=== PATIENT | male | born 1985 | race Caucasian/White ===

== ENCOUNTER 2020-10-27 12:28 | Inpatient (IN) ==
[2020-10-27 13:14] LABS: Basophils # (auto) 0.04 K/uL (0-0.2); Basophils % (auto) 0.2 %; Eosinophils # (auto) 0.06 K/uL (0-0.5); Eosinophils % (auto) 0.3 %; Hematocrit (blood only) 52.1 % (42-52); Hemoglobin 18.5 g/dL (14.0-18.0); Immature Granulocytes # (auto) 0.07 K/uL (0.00-0.02); Immature Granulocytes % (auto) 0.4 %; Lymphocytes # (auto) 1.72 K/uL (1.2-3.4); Mean Corpuscular Hgb Conc 35.5 g/dL (32-36); Mean Corpuscular Volume 92.9 fL (80-100); Monocytes # (auto) 1.44 K/uL (0.11-0.59); Monocytes % (auto) 8.4 %; Neutrophils # (auto) 13.91 K/uL (1.4-6.5); Neutrophils % (auto) 80.7 %; Platelet Count 336 K/uL (130-400); RDW Coefficient of Variation 12.2 % (11.5-14.5); RDW Standard Deviation 41.7 fL (36.4-46.3); Red Blood Count 5.61 M/uL (4.7-6.1); White Blood Count 17.24 K/uL (4.8-10.8)
[2020-10-27 13:29] LABS: Albumin Level 3.6 gm/dl (3.4-5.0); BUN Creatinine Ratio 14.6 (10-20); Creatinine Clr Calc Pharmacy 183.6 ml/min; Est GFR (African American) 133.2; Est GFR (Non-African American) 114.9; Potassium 3.3 mmol/L (3.5-5.1)
[2020-10-27 13:32] LABS: Albumin Globulin Ratio 0.6 (0.9-2); Bilirubin,Total 1.1 mg/dl (0.2-1); Globulin 5.6 gm/dl (2.5-4.0); Total Protein 9.2 gm/dl (6.4-8.2)
[2020-10-27] MEDS ORDERED: SODIUM CHLORIDE 0.9% 1000ML 1,000 ML IV ONE (14:43)
[2020-10-27] MEDS ORDERED: VANCOMYCIN HCL 2,750 MG in SODIUM CHLORIDE 0.9% 500 ML IV ONE (14:43)
[2020-10-27] MEDS ORDERED: VANCOMYCIN CONSULT ACTIVE PRN (14:43)
[2020-10-27] MEDS ORDERED: PIPERACILLIN/TAZOBACTAM 4.5 GM/120 ML BAG IV ONE (14:43)
[2020-10-27] MEDS ORDERED: OPTIRAY 350 500ml IV ONE (15:05)
[2020-10-27 15:16] LABS: Appearance Urine Cloudy (Clear); Bacteria Urine Automated 1+ (Negative); Blood Urine Negative (Negative); Color Urine Orange; Epithelial Cell Urine Auto >30 /lpf (0-5); Glucose Urine UA Negative (Negative); Ketones Urine Trace (Negative); Leukocyte Esterase Urine Trace (Negative); Nitrite Urine Positive (Negative); Protein Urine 2+ (Negative); Specific Gravity Urine 1.038 (1.000-1.030); Urobilinogen Urine Positive (Negative); pH Urine 5.5 (4.5-7.5)
[2020-10-27 15:22] LABS: Bilirubin Urine 1+ (Negative)
--- NOTE | 2020-10-27 15:22 | CT Scan Report ---
CT pelvis w/IV con only HISTORY: 35 years-old Male ro fourniers R testicle swelling erythema febrile acute pain and swelling of the right scrotum COMPARISON: CT abdomen and pelvis 02/27/2013 TECHNIQUE: Multiple axial CT images of the pelvis were obtained following the intravenous ministratio n of 106 mL Optiray 320. A dose lowering technique was used consistent with the principals of ARTURO. FINDINGS: Aorta and IVC are unremarkable. Urinary bladder prostate are unremarkable. Colonic diverticulosis. No rmal appendix. No ascites or mesenteric inflammation. Enlarged iliac chain, pelvic sidewall and ingui nal lymph nodes are noted bilaterally measuring up to approximately 1.5 cm. There is a peripherally e nhancing collection within the right hemiscrotum distribution measuring 12.0 x 7.6 x 7.0 cm which con tains debris, air and fluid. There is adjacent subcutaneous edema with fluid extending into the right upper scrotum, image 309. No deep tissue air identified within the perineal tissues. No acute fractu re. IMPRESSION: 1. Thick-walled peripherally enhancing air and fluid-filled collection of the right hemiscrotum measu ring up to 12 cm in greatest dimension is suggestive of a scrotal abscess. No collection or soft tiss ue gas within the perineal tissues. Urology consultation recommended. 2. Pathologic iliac chain, pelvic sidewall and inguinal adenopathy, likely reactive. ACT 112: Negative or not required by law. The above report was generated using voice recognition software. It may contain grammatical, syntax o r spelling errors. Electronically signed by: Brennan Chester M.D. 10/27/2020 3:21 PM
[2020-10-27 15:47] LABS: RBC Urine Automated 0-4 /hpf (0-4)
[2020-10-27 15:48] LABS: Cast Urine Automated 0 /lpf (0-5); Mucus Urine Present (None Prsent)
[2020-10-27 15:51] LABS: INR 1.1 (0.9-1.1); Partial Thromboplastin Ratio 1.1; Partial Thromboplastin Time 28.5 Seconds (21.0-31.0); Prothrombin Time 11.2 Seconds (9.0-12.0)
--- NOTE | 2020-10-27 16:17 | Urology Consultation ---
Date of Consultation October 27, 2020 Assessment & Plan (1) Scrotal abscess: (2) Scrotal swellin year-old male patient, with history of GERD and kidney stones, presented with findings consistent with scrotal abscess. -Plan of care reviewed with Dr. Malone. -Patient afebrile. -Labs reviewed - wbc elevated at 17.24, creatinine stable. -Blood and urine cultures pending, await results. -Imaging reviewed - thick-walled peripherally enhancing air and fluid-filled collection of the right hemiscrotum measuring up to 12 cm in greatest dimension suggestive of a scrotal abscess. -Recommend admitting to medicine team. -Recommend NPO. -Plan for surgical intervention this evening. Findings reviewed with Dr. Malone. Given exam findings, will proceed to OR for right scrotal incision and drainage with possible debridement. Risks and benefits of procedure to be reviewed with patient by Dr. Malone. COVID-19 pending. Patient received IV Zosyn and currently receiving IV Vancomycin. Will continue to follow while inpatient. Supervising Physician Co-Signing Physician Notes Pt seen and examined . Pt has had the swelling starting as a marble sized area a week ago and progressing to a full scrotal abscess 12 cm with an elevated glucose . The left testis is palpable and the swelling appears confined to the right hemiscrotum . Do not believe this has progressed to fourniers but will take to the or to drain and debride if necessary and patient understands this could progress and he could need a reoperation . Will ask medicine to admit and address blood sugar and manage antibiotics. Answered patients questions and have contacted the OR History of Present Illness Reason for Consultation: Scrotal abscess Requesting Physician: Dr. Jose A Kidd History of Present Illness 35 year-old male patient, with past medical history significant for kidney stones and GERD, presented to the emergency room today with complaints of scrotal swelling. He was seen earlier today at [facility] for same symptoms and was directed to come to ER due to concern for sepsis. Per patient, he was febrile at [facility] but is unsure how high his temperature was. States roughly one week ago, he started to develop right-sided scrotal swelling which progresse d significantly over the past 3 days. Denies injury to the area. States his scrotum then became warm, red, and tender. States in July, he had similar episode to the left scrotum, but the area opened up and drained without intervention and subsequently resolved with time. Upon assessment, he was afebrile and tachycardic. His white count was elevated. Due to pelvic CT findings, he was asked to be evaluated by urology service. Urology consulted due to significant scrotal swelling. Patient has not followed with urologist in the past. Chart review: Afebrile Blood pressure 195/100 HR 119 Wbc 17.24 Hgb 18.5 Creatinine 0.80 Urinalysis with trace leukocytes, 10-30 wbc, 0-4 rbc +1 bacteria, positive nitrates. Urine culture pending. Blood cultures x2 pending. Imaging - CT pelvis with contrast - IMPRESSION: 1. Thick-walled peripherally enhancing air and fluid-filled collection of the right hemiscrotum measuring up to 12 cm in greatest dimension is suggestive of a scrotal abscess. No collection or soft tissue gas within the perineal tissues. Urology consultation recommended. 2. Pathologic iliac chain, pelvic sidewall and inguinal adenopathy, likely reactive. Patient seen and examined at bedside. He is alert, awake, non-toxic in appearance. Does appear anxious. States he continues to have discomfort to scrotal area. Reports over the past 3 days, symptoms have progressively worsen ed. Denies significant difficulty with urination. Denies dysuria or hematuria. Denies urinary frequency/urgency. Feels he empties his bladder well. Denies fevers or chills. Denies nausea or vomiting. He states he was applying rubbing alcohol to scrotum at home without improvement in symptoms. States he does not feel ill at this time. He has not ate food since yesterday around 9:00 and last drank liquid this morning. Overall, his symptoms have been worsening. Denies additional urologic concerns today. Allergies Allergy/AdvReac Type Severity Reaction Status Date / Time No Known Allergies Allergy Unverified 10/27/20 14:23 Home Medications Medication Instructions Recorded Confirmed Type omeprazole magnesium [Prilosec OTC] 20 mg PO DAILY 10/27/20 10/27/20 History Patient History Medical History GERD (gastroesophageal reflux disease) No pertinent family history Surgical History No pertinent past surgical history Family History Grandfather (Maternal) Cancer Social History Smoking Status: Current every day smoker Preferred Language: Polish Feels Safe at Home: Yes Review of Systems Constitutional: as per Subjective / HPI; no chills Eyes: no problem reported Ear, Nose, Mouth, Throat: no dizziness Respiratory: no cough and no dyspnea Cardiovascular: no chest pain and no edema Gastrointestinal: as per Subjective / HPI Genitourinary: + as per Subjective / HPI Musculoskeletal: as per Subjective / HPI Neurologic: no dizziness Endocrine: no fatigue Hematologic / Lymphatic: no easy bleeding and no easy bruising Physical Exam Constitutional: well developed, well nourished and + obese; no acute distress and not ill appearing ENMT: Ears: no external ear abnormality Nose: no external nose abnormality Neck: normal visual inspection and trachea midline Respiratory: normal respiratory effort and able to speak in complete se ntences; no respiratory distress and no audible wheezes Cardiovascular: Extremities: no calf tenderness and no edema Gastrointestinal (Abdomen): Inspection/Auscultation: abdomen normal to inspection; abdomen not distended Percussion/Palpation: abdomen soft; abdomen nontender and no guarding Musculoskeletal: Moves all extremities without difficulty. Skin: See assessment Neurologic: moves all extremities and awake Psychiatric: Orientation: alert, oriented x 3 and cooperative Affect: + anxious affect Genitourinary: Generalized swelling to scrotal area, right greater than left. Area is firm and tender to touch, tense skin. Erythema noted to scrotum with scaling of the skin. No significant warmth. No open areas or drainage to scrotum. Results & Data ([facility]) Vital Signs (Past 12 Hours) Vital Signs Temp Pulse Resp BP Pulse Ox 10/27/20 12:31 37.2 C 119 H 16 195/100 H 98 PG Care Time/CCT Total # of Minutes Spent Total Time Spent with Patient: Total time spent is greater than 50% in coordination of care (as documented) at patient's floor/unit and/or counseling patient: Coding Level of Care Code 22220 Inpt Consult Level 4 Diagnoses Scrotal abscess N49.2 Scrotal swelling N50.89
--- NOTE | 2020-10-27 16:22 | Emergency Department Note ---
History of Present Illness General Chief complaint: Infection Stated complaint: FROM GROIN ABSCESS SEPSIS Time Seen by Provider: 10/27/20 14:24 History of Present Illness Provider Complaint: + testicle pain and + testicle swelling Onset (ago): week(s) 1 Duration: + progressively worsening Location: + right testicle Severity: moderate Maximum Pain Intensity: 5 Current Pain Intensity: 5 Quality: + aching and + dull Relieved By: + none Exacerbated By: + other (sitting) Context: no trauma, no new sexual partner, no lifting and no known STD exposure Associated symptoms: + fever/chills and + rash; no chest pain, no cough, no se izure and no shortness of breath Other Symptoms: no discharge, no swelling, no mass, no urinary retention, no blood in urine, no dysuria and no incontinence Patient sent in by [employer] for concern for sepsis. Home Medications Medication Instructions Recorded Confirmed Type omeprazole magnesium [Prilosec OTC] 20 mg PO DAILY 10/27/20 10/27/20 History Allergies Allergy/AdvReac Type Severity Reaction Status Date / Time No Known Allergies Allergy Unverified 10/27/20 14:23 Past Med/Surg History Medical History GERD (gastroesophageal reflux disease) No pertinent family history Surgical History No pertinent past surgical history Family History Grandfather (Maternal) Cancer Social History Smoking Status: Current every day smoker Cigarettes Per Day: 1 pack; Hx Alcohol Use: Yes Alcohol type: beer and hard liquor Hx Substance Use: No Preferred Language: Colombian Beliefs That Will Affect Care: None Current Living Situation: Spouse Feels Safe at Home: Yes Safety Concerns: Feels Safe At This Time Assistive Devices: CPAP and Glasses Review of Systems A total of 10 systems reviewed and were otherwise negative Physical Exam Vital Signs: Vital Signs - 24 hr 10/27/20 12:31 10/27/20 16:29 10/27/20 17:29 Temperature 37.2 C 37.6 C H Temperature Source Oral Oral Pulse Rate 119 H Pulse Rate [Apical ] Pulse Rate [Right Finger] 85 111 H Pulse Rhythm Regular Pulse Rhythm [Apic al] Pulse Strength Normal Respiratory Rate 16 16 16 Respiratory Effort / Characteristics Non-Labored Non-Labored Sponta neous Non-Labored Sponta neous Respiratory Depth Normal Normal Normal Respiratory Patter n Regular Regular Blood Pressure 195/100 H Blood Pressure [Le ft Arm] Blood Pressure [Ri ght Arm] 152/103 H 180/120 H Blood Pressure Ailyn n 131 Blood Pressure Ailyn n [Left Arm] Blood Pressure Ailyn n [Right Arm] 119 140 Blood Pressure Pos ition Sitting Blood Pressure Pos ition [Left Arm] Blood Pressure Pos ition [Right Arm] Semi-fowlers Pulse Oximetry 98 100 96 Oxygen Delivery Me thod Room Air Room Air Room Air Oxygen Flow Rate Sepsis Recent Feve r Within 48 Hours No Sepsis New/Unexpla ined Change in Men paulette Status N/A Sepsis Action Take n by Nursing No Action Required 10/27/20 19:10 10/27/20 19:20 Temperature 37.0 C Temperature Source Temporal Artery Sc an Pulse Rate Pulse Rate [Apical ] 82 93 H Pulse Rate [Right Finger] Pulse Rhythm Pulse Rhythm [Apic al] Regular Regular Pulse Strength Respiratory Rate 23 20 Respiratory Effort / Characteristics Non-Labored Sponta neous Non-Labored Sponta neous Respiratory Depth Normal Normal Respiratory Patter n Regular Regular Blood Pressure Blood Pressure [Le ft Arm] 112/60 126/93 Blood Pressure [Ri ght Arm] Blood Pressure Ailyn n Blood Pressure Ailyn n [Left Arm] 77 104 Blood Pressure Ailyn n [Right Arm] Blood Pressure Pos ition Blood Pressure Pos ition [Left Arm] Lying Lying Blood Pressure Pos ition [Right Arm] Pulse Oximetry 92 95 Oxygen Delivery Me thod Oxymask Oxymask Oxygen Flow Rate 4 4 Sepsis Recent Feve r Within 48 Hours Sepsis New/Unexpla ined Change in Men paulette Status Sepsis Action Take n by Nursing Physical Exam: Physical Exam GENERAL: He is oriented to person, place, and time. He appears well-developed and well-nourished. He does not appear distressed. HENT: Exam performed. - Head: Normocephalic and atraumatic. - Right Ear: External ear normal. No mastoid tenderness. - Left Ear: External ear normal. No mastoid tenderness. - Mouth/Throat: The oropharynx is clear and moist. No trismus in the jaw. No dental abscesses or uvula swelling. No oropharyngeal exudate or tonsillar abscesses. EYES: Conjunctivae and EOM are normal. Pupils are equal, round, and reactive to light. Right eye exhibits no discharge. Left eye exhibits no discharge. No scleral icterus. NECK: Normal range of motion. Neck supple. No JVD present. No spinous process tenderness present. No carotid bruit present. No rigidity. No tracheal deviation and normal range of motion present. No Brudzinski's sign and no Kernig's sign noted. CV: Normal rate, regular rhythm, normal heart sounds and intact distal pulses. There is no peripheral edema. Palpable radial pulses bue. PULM/CHEST: Effort normal and breath sounds normal. No respiratory distress. No stridor. He has no wheezes. He has no rales. - Chest Wall: He exhibits no tenderness. ABD: The abdomen is soft. Bowel sounds are normal. He has no distension. No mass is present. There is no tenderness. There is no rebound, no guarding, no Horn's sign and no tenderness at McBurney's point. Rovsig negative. : Right scrotal swelling and erythema with scaling of the skin. Right scrotum is tense MUSC/SKEL: Normal range of motion. There is no peripheral edema, tenderness or deformity. LYMPH: No cervical adenopathy. NEURO: He is alert and oriented to person, place, and time. He has normal strength. No cranial nerve deficit or sensory deficit. Coordination and gait normal. GCS eye subscore is 4. GCS verbal subscore is 5. GCS motor subscore is 6. Cerebellar tests wnl. SKIN: Skin is warm and dry. He is not diaphoretic. PSYCH: He has a normal mood and affect. Behavior is normal. Judgment and thought content normal. Course Course 1424: The patient was evaluated in room A3. A complete history and physical exam was performed Cardiac monitoring: An order was placed for continuous cardiac monitoring. The monitor shows a rate of 120 with sinus tachycardia rhythm Patient was seen during a time of high acuity and high volume during the COVID- 19 pandemic. Nursing triage protocols were initiated. Fluid bolus initiated and broad-spectrum antibiotics Vanco and Zosyn started for the patient. 1534: Labs show a leukocytosis of 17. CT shows scrotal abscess with no free air or evidence of Joselyn's gangrene. Spoke with urology PA America who states she will discuss the case with Dr. Malone. 1604: Urology at bedside. They are asking that the patient be made n.p.o. and a Covid swab be conducted for possible OR debridement. 1626: Urology asks for the patient to be admitted to the medicine service. Administered Medications Discontinued Medications Bacitracin (Bacitracin Oint 15 Gm Tube) Confirm Administered Dose 45 appln .ROUTE .STK-MED ONE Stop: 10/27/20 18:58 Last Admin: 10/27/20 18:58 Dose: 45 appln Documented by: [id number] Bupivacaine HCl (Bupivacaine 0.5 % 5 Mg/1 Ml Mpf 30ml Vial) Confirm Administered Dose 30 ml .ROUTE .STK-MED ONE Stop: 10/27/20 17:36 Last Admin: 10/27/20 18:50 Dose: 24 ml Documented by: [id number] Gentamicin Sulfate (Gentamicin Sulfate 40 Mg/Ml 2 Ml Vial) Confirm Administered Dose 80 mg .ROUTE .STK-MED ONE Stop: 10/27/20 18:04 Last Admin: 10/27/20 18:44 Dose: 80 mg Documented by: [id number] Sodium Chloride (Nss 1000ml) 1,000 mls @ 999 mls/hr IV .Q1H1M ONE Stop: 10/27/20 15:43 Last Infusion: 10/27/20 16:35 Dose: 0 mls/hr Documented by: [id number] Admin: 10/27/20 15:25 Dose: 999 mls/hr Documented by: [id number] Piperacillin Sod/Tazobactam Sod (Zosyn) 4.5 gm in 120 mls @ 240 mls/hr IV NOW ONE Stop: 10/27/20 15:12 Last Infusion: 10/27/20 16:05 Dose: 0 mls/hr Documented by: [id number] Admin: 10/27/20 15:25 Dose: 240 mls/hr Documented by: [id number] Vancomycin HCl 2,750 mg/ (Sodium Chloride) 555 mls @ 200 mls/hr IV NOW ONE Stop: 10/27/20 17:29 Last Infusion: 10/27/20 20:37 Dose: 0 mls/hr Documented by: [id number] Admin: 10/27/20 16:12 Dose: 200 mls/hr Documented by: [id number] Ioversol (Optiray 350 500ml) 106 ml IV ONCE ONE Stop: 10/27/20 15:06 Last Admin: 10/27/20 15:06 Dose: 106 ml Documented by: [id number] Meperidine HCl (Meperidine Hcl 25 Mg/Ml Carp/Vial) Confirm Administered Dose 25 mg .ROUTE .STK-MED ONE Stop: 10/27/20 19:27 Last Admin: 10/27/20 20:36 Dose: Not Given Documented by: [id number] Meperidine HCl (Meperidine Hcl 25 Mg/Ml Carp/Vial) 25 mg IV NOW STA Stop: 10/27/20 19:27 Last Admin: 10/27/20 20:36 Dose: Not Given Documented by: [id number] Morphine Sulfate (Morphine Sulfate 4 Mg/Ml 1 Ml Carp\Vial) 3 mg IV Q3H CHERYL Stop: 11/10/20 20:15 Last Admin: 10/27/20 20:42 Dose: Not Given Documented by: Medical Decision Making Laboratory Data Result diagrams: 10/27/20 13:00 10/27/20 13:00 Lab Results 10/27/20 10/27/20 10/27/20 Range/Units 13:00 13:00 13:00 WBC 17.24 H (4.8-10.8) K/uL RBC 5.61 (4.7-6.1) M/uL Hgb 18.5 H (14.0-18.0) g/dL Hct 52.1 H (42-52) % MCV 92.9 (80-100) fL MCH 33.0 (25-34) pg MCHC 35.5 (32-36) g/dL RDW Std Deviation 41.7 (36.4-46.3) fL RDW Coeff of Jg 12.2 (11.5-14.5) % Plt Count 336 (130-400) K/uL MPV 10.0 (7.4-10.4) fL Immature Gran % (Auto) 0.4 % Neut % (Auto) 80.7 % Lymph % (Auto) 10.0 % Bartholomew % (Auto) 8.4 % Eos % (Auto) 0.3 % Baso % (Auto) 0.2 % Neut # (Auto) 13.91 H (1.4-6.5) K/uL Lymph # (Auto) 1.72 (1.2-3.4) K/uL Bartholomew # (Auto) 1.44 H (0.11-0.59) K/uL Eos # (Auto) 0.06 (0-0.5) K/uL Baso # (Auto) 0.04 (0-0.2) K/uL Immature Gran # (Auto) 0.07 H (0.00-0.02) K/uL PT (9.0-12.0) Seconds INR (0.9-1.1) APTT (21.0-31.0) Seconds PTT Ratio Sodium 136 (136-145) mmol/L Potassium 3.3 L (3.5-5.1) mmol/L Chloride 103 (98-107) mmol/L Carbon Dioxide 26 (21-32) mmol/L Anion Gap 8.0 (3-11) BUN 12 (7-18) mg/dl Creatinine 0.80 (0.6-1.4) mg/dl Est Cr Clr Drug Dosing 183.6 ml/min Est GFR ( Amer) 133.2 Est GFR (Non-Af Amer) 114.9 BUN/Creatinine Ratio 14.6 (10-20) Glucose 202 H (70-99) mg/dl POC Glucose (70-99) mg/dl Osmolality 302 H (280-300) mOsm/kg Lactate (0.4-2.0) mmol/L Calcium 10.0 (8.5-10.1) mg/dl Total Bilirubin 1.1 H (0.2-1) mg/dl AST 23 (15-37) U/L ALT 31 (12-78) U/L Alkaline Phosphatase 149 H (45-117) U/L Total Protein 9.2 H (6.4-8.2) gm/dl Albumin 3.6 (3.4-5.0) gm/dl Globulin 5.6 H (2.5-4.0) gm/dl Albumin/Globulin Ratio 0.6 L (0.9-2) Urine Color Urine Appearance (Clear) Urine pH (4.5-7.5) Ur Specific [place] (1.000-1.030) Urine Protein (Negative) Urine Glucose (UA) (Negative) Urine Ketones (Negative) Urine Blood (Negative) Urine Nitrite (Negative) Urine Bilirubin (Negative) Urine Urobilinogen (Negative) Ur Leukocyte Esterase (Negative) Urine WBC (Auto) (0-5) /hpf Urine RBC (Auto) (0-4) /hpf U Hyaline Cast (Auto) (0-5) /lpf U Epithel Cells (Auto) (0-5) /lpf Urine Bacteria (Auto) (Negative) Urine Mucus (None Prsent) COVID-19 Eval Order SARS-CoV-2 (PCR) (Negative) Influenza Type A (PCR) (Neg) Influenza Type B (PCR) (Neg) RSV (RT-PCR) (Neg) 10/27/20 10/27/20 10/27/20 Range/Units 13:00 15:10 15:33 WBC (4.8-10.8) K/uL RBC (4.7-6.1) M/uL Hgb (14.0-18.0) g/dL Hct (42-52) % MCV (80-100) fL MCH (25-34) pg MCHC (32-36) g/dL RDW Std Deviation (36.4-46.3) fL RDW Coeff of Jg (11.5-14.5) % Plt Count (130-400) K/uL MPV (7.4-10.4) fL Immature Gran % (Auto) % Neut % (Auto) % Lymph % (Auto) % Bartholomew % (Auto) % Eos % (Auto) % Baso % (Auto) % Neut # (Auto) (1.4-6.5) K/uL Lymph # (Auto) (1.2-3.4) K/uL Bartholomew # (Auto) (0.11-0.59) K/uL Eos # (Auto) (0-0.5) K/uL Baso # (Auto) (0-0.2) K/uL Immature Gran # (Auto) (0.00-0.02) K/uL PT 11.2 (9.0-12.0) Seconds INR 1.1 (0.9-1.1) APTT 28.5 (21.0-31.0) Seconds PTT Ratio 1.1 Sodium (136-145) mmol/L Potassium (3.5-5.1) mmol/L Chloride (98-107) mmol/L Carbon Dioxide (21-32) mmol/L Anion Gap (3-11) BUN (7-18) mg/dl Creatinine (0.6-1.4) mg/dl Est Cr Clr Drug Dosing ml/min Est GFR ( Amer) Est GFR (Non-Af Amer) BUN/Creatinine Ratio (10-20) Glucose (70-99) mg/dl POC Glucose (70-99) mg/dl Osmolality (280-300) mOsm/kg Lactate 1.4 (0.4-2.0) mmol/L Calcium (8.5-10.1) mg/dl Total Bilirubin (0.2-1) mg/dl AST (15-37) U/L ALT (12-78) U/L Alkaline Phosphatase (45-117) U/L Total Protein (6.4-8.2) gm/dl Albumin (3.4-5.0) gm/dl Globulin (2.5-4.0) gm/dl Albumin/Globulin Ratio (0.9-2) Urine Color [place] Urine Appearance Cloudy A (Clear) Urine pH 5.5 (4.5-7.5) Ur Specific [place] 1.038 H (1.000-1.030) Urine Protein 2+ H (Negative) Urine Glucose (UA) Negative (Negative) Urine Ketones Trace H (Negative) Urine Blood Negative (Negative) Urine Nitrite Positive A (Negative) Urine Bilirubin 1+ H (Negative) Urine Urobilinogen Positive H (Negative) Ur Leukocyte Esterase Trace H (Negative) Urine WBC (Auto) 10-30 H (0-5) /hpf Urine RBC (Auto) 0-4 (0-4) /hpf U Hyaline Cast (Auto) 0 (0-5) /lpf U Epithel Cells (Auto) >30 H (0-5) /lpf Urine Bacteria (Auto) 1+ H (Negative) Urine Mucus Present A (None Prsent) COVID-19 Eval Order SARS-CoV-2 (PCR) (Negative) Influenza Type A (PCR) (Neg) Influenza Type B (PCR) (Neg) RSV (RT-PCR) (Neg) 10/27/20 10/27/20 10/27/20 Range/Units 16:15 16:15 19:16 WBC (4.8-10.8) K/uL RBC (4.7-6.1) M/uL Hgb (14.0-18.0) g/dL Hct (42-52) % MCV (80-100) fL MCH (25-34) pg MCHC (32-36) g/dL RDW Std Deviation (36.4-46.3) fL RDW Coeff of Jg (11.5-14.5) % Plt Count (130-400) K/uL MPV (7.4-10.4) fL Immature Gran % (Auto) % Neut % (Auto) % Lymph % (Auto) % Bartholomew % (Auto) % Eos % (Auto) % Baso % (Auto) % Neut # (Auto) (1.4-6.5) K/uL Lymph # (Auto) (1.2-3.4) K/uL Bartholomew # (Auto) (0.11-0.59) K/uL Eos # (Auto) (0-0.5) K/uL Baso # (Auto) (0-0.2) K/uL Immature Gran # (Auto) (0.00-0.02) K/uL PT (9.0-12.0) Seconds INR (0.9-1.1) APTT (21.0-31.0) Seconds PTT Ratio Sodium (136-145) mmol/L Potassium (3.5-5.1) mmol/L Chloride (98-107) mmol/L Carbon Dioxide (21-32) mmol/L Anion Gap (3-11) BUN (7-18) mg/dl Creatinine (0.6-1.4) mg/dl Est Cr Clr Drug Dosing ml/min Est GFR ( Amer) Est GFR (Non-Af Amer) BUN/Creatinine Ratio (10-20) Glucose (70-99) mg/dl POC Glucose 139 H (70-99) mg/dl Osmolality (280-300) mOsm/kg Lactate (0.4-2.0) mmol/L Calcium (8.5-10.1) mg/dl Total Bilirubin (0.2-1) mg/dl AST (15-37) U/L ALT (12-78) U/L Alkaline Phosphatase (45-117) U/L Total Protein (6.4-8.2) gm/dl Albumin (3.4-5.0) gm/dl Globulin (2.5-4.0) gm/dl Albumin/Globulin Ratio (0.9-2) Urine Color Urine Appearance (Clear) Urine pH (4.5-7.5) Ur Specific [place] (1.000-1.030) Urine Protein (Negative) Urine Glucose (UA) (Negative) Urine Ketones (Negative) Urine Blood (Negative) Urine Nitrite (Negative) Urine Bilirubin (Negative) Urine Urobilinogen (Negative) Ur Leukocyte Esterase (Negative) Urine WBC (Auto) (0-5) /hpf Urine RBC (Auto) (0-4) /hpf U Hyaline Cast (Auto) (0-5) /lpf U Epithel Cells (Auto) (0-5) /lpf Urine Bacteria (Auto) (Negative) Urine Mucus (None Prsent) COVID-19 Eval Order Cov[facility]Rsv at [facility] SARS-CoV-2 (PCR) NEGATIVE (Negative) Influenza Type A (PCR) Negative (Neg) Influenza Type B (PCR) Negative (Neg) RSV (RT-PCR) Negative (Neg) Imaging Data Radiologist's Impression: Pelvis CT 10/27/20 14:42 CT pelvis w/IV con only HISTORY: 35 years-old Male ro fourn[place] R testicle swelling erythema febrile acute pain and swelling of the right scrotum COMPARISON: CT abdomen and pelvis 02/27/2013 TECHNIQUE: Multiple axial CT images of the pelvis were obtained following the intravenous ministration of 106 mL Optiray 320. A dose lowering technique was used consistent with the principals of ALARA. FINDINGS: Aorta and IVC are unremarkable. Urinary bladder prostate are unremarkable. Colonic diverticulosis. Normal appendix. No ascites or mesenteric inflammation. Enlarged iliac chain, pelvic sidewall and inguinal lymph nodes are noted bilaterally measuring up to approximately 1.5 cm. There is a peripherally enhancing collection within the right hemiscrotum distribution measuring 12.0 x 7.6 x 7.0 cm which contains debris, air and fluid. There is adjacent subcutaneous edema with fluid extending into the right upper scrotum, image 309. No deep tissue air identified within the perineal tissues. No acute fracture. IMPRESSION: 1. Thick-walled peripherally enhancing air and fluid-filled collection of the right hemiscrotum measuring up to 12 cm in greatest dimension is suggestive of a scrotal abscess. No collection or soft tissue gas within the perineal tissues. Urology consultation recommended. 2. Pathologic iliac chain, pelvic sidewall and inguinal adenopathy, likely reactive. ACT 112: Negative or not required by law. The above report was generated using voice recognition software. It may contain grammatical, syntax or spelling errors. Electronically signed by: Brennan Chester M.D. 10/27/2020 3:21 PM [facility] Narrative 1424: The patient was evaluated in room A3. A complete history and physical exam was performed Cardiac monitoring: An order was placed for continuous cardiac monitoring. The monitor shows a rate of 120 with sinus tachycardia rhythm Patient was seen during a time of high acuity and high volume during the COVID- 19 pandemic. Nursing triage protocols were initiated. Fluid bolus initiated and broad-spectrum antibiotics Vanco and Zosyn started for the patient. 1534: Labs show a leukocytosis of 17. CT shows scrotal abscess with no free air or evidence of Joselyn's gangrene. Spoke with urology ELENA Cross who states she will discuss the case with Dr. Malone. 1604: Urology at bedside. They are asking that the patient be made n.p.o. and a Covid swab be conducted for possible OR debridement. 1626: Urology asks for the patient to be admitted to the medicine service. Impression & Plan Scrotal abscess Discharge Plan Visit Data Chief Complaint: Infection Stated Complaint: FROM GROIN ABSCESS SEPSIS ED Provider: Jose A Kidd Discharge Problem: Scrotal abscess Patient Disposition: Admitted As Inpatient Discharge Instructions Interventions: ED Discharge Assessment Last Done: 10/27/20 17:24
[2020-10-27 17:14] LABS: Influenza A virus by PCR Negative (Neg); Influenza B virus by PCR Negative (Neg); RSV by PCR Negative (Neg); SARS CoV2 RNA(COVID-19) InHosp NEGATIVE (Negative)
[2020-10-27] MEDS ORDERED: fentaNYL citrate 100 MCG/2 ML VIAL ONE ×2 (17:30→18:20)
[2020-10-27] MEDS ORDERED: MIDAZOLAM HCL 1 MG/ML 2ML VIAL ONE (17:30)
--- NOTE | 2020-10-27 17:34 | Anesthesiology Consultation ---
Date of Service October 27, 2020 Assessment & Plan Chart Review Chart Review: Acceptable Risk for Surgery Consults Requested none History Surgery Operation Date: 10/27/20 10:30 Proposed Procedures p Right Incision and Drainage fo Scrotal Abscess - Rambo Malone MD Height/Weight Height: 6 ft Weight: 137.8 kg Allergies Allergy/AdvReac Type Severity Reaction Status Date / Time No Known Allergies Allergy Unverified 10/27/20 14:23 Medications Home Medications Medication Instructions Recorded Confirmed Last Taken omeprazole magnesium [Prilosec OTC] 20 mg PO DAILY 10/27/20 10/27/20 Unknown NPO Date Last Intake of Fluids: 10/26/20 Time Last Intake of Fluids: 21:00 Date Last Intake of Solids: 10/26/20 Time Last Intake of Solids: 21:00 Past Medical History Medical History GERD (gastroesophageal reflux disease) No pertinent family history Past Family History Family History Grandfather (Maternal) Cancer Past Surgical History Surgical History No pertinent past surgical history Social History Smoking Status: Current every day smoker Physical Exam Vital Signs Last Vital Signs Temp 37.6 C H 10/27/20 17:29 Pulse 111 H 10/27/20 17:29 Resp 16 10/27/20 17:29 BP 180/120 H 10/27/20 17:29 Pulse Ox 96 10/27/20 17:29 Testing Laboratory Results 10/27/20 13:00 10/27/20 13:00 PT 11.2 Seconds (9.0-12.0) 10/27/20 13:00 INR 1.1 (0.9-1.1) 10/27/20 13:00 APTT 28.5 Seconds (21.0-31.0) 10/27/20 13:00 Urine Color [place] 10/27/20 15:10 Urine Appearance Cloudy (Clear) A 10/27/20 15:10 Urine pH 5.5 (4.5-7.5) 10/27/20 15:10 Ur Specific [place] 1.038 (1.000-1.030) H 10/27/20 15:10 Urine Protein 2+ (Negative) H 10/27/20 15:10 Urine Glucose (UA) Negative (Negative) 10/27/20 15:10 Urine Ketones Trace (Negative) H 10/27/20 15:10 Urine Nitrite Positive (Negative) A 10/27/20 15:10 Ur Leukocyte Esterase Trace (Negative) H 10/27/20 15:10 Urine WBC (Auto) 10-30 /hpf (0-5) H 10/27/20 15:10 Urine RBC (Auto) 0-4 /hpf (0-4) 10/27/20 15:10 U Hyaline Cast (Auto) 0 /lpf (0-5) 10/27/20 15:10 U Epithel Cells (Auto) >30 /lpf (0-5) H 10/27/20 15:10 Urine Bacteria (Auto) 1+ (Negative) H 10/27/20 15:10
[2020-10-27] MEDS ORDERED: BUPIVACAINE 0.5 % 5 MG/1 ML MPF 30ML VIAL ONE (17:35)
[2020-10-27] MEDS ORDERED: LIDOCAINE HCL 2% 2 ML VIAL/AMP(20MG/ML) INFIL ONE (17:43)
[2020-10-27] MEDS ORDERED: ePHEDrine sulfate 50 MG/ML SYR ONE (17:43)
[2020-10-27] MEDS ORDERED: PROPOFOL IV EMULSION 10 MG/ML 20 ML VIAL IV ONE (17:43)
[2020-10-27] MEDS ORDERED: ONDANSETRON INJ 2 MG/ML 2 ML VIAL ONE (17:43)
[2020-10-27] MEDS ORDERED: DEXAMETHASONE SOD INJ 4 MG/ML VIAL ONE (17:43)
[2020-10-27] MEDS ORDERED: PHENYLEPHRINE 100MCG/ML 5ML SYR ONE (17:43)
[2020-10-27] MEDS ORDERED: GENTAMICIN SULFATE 40 MG/ML 2 ML VIAL ONE (18:03)
[2020-10-27] MEDS ORDERED: PROMETHAZINE HCL 12.5 MG in SODIUM CHLORIDE 0.9% 50 ML IV PRN (18:14)
[2020-10-27] MEDS ORDERED: ATROPINE SULFATE 0.1 MG/ML 10ML SYR IV PRN (18:14)
[2020-10-27] MEDS ORDERED: fentaNYL citrate 100 MCG/2 ML VIAL IV PRN (18:14)
[2020-10-27] MEDS ORDERED: ePHEDrine sulfate 50 MG/ML AMP IV PRN (18:14)
[2020-10-27] MEDS ORDERED: ONDANSETRON INJ 2 MG/ML 2 ML VIAL IV PRN ×2 (18:14→20:16)
[2020-10-27] MEDS ORDERED: METOCLOPRAMIDE HCL INJ 5 MG/ML 2 ML VIAL IV PRN (18:14)
[2020-10-27] MEDS ORDERED: HYDROmorphone INJ 2 MG/ML SYR/VIAL IV PRN (18:14)
[2020-10-27] MEDS ORDERED: BACITRACIN OINT 15 GM TUBE ONE (18:57)
--- NOTE | 2020-10-27 19:11 | Post Operative Brief Note ---
PG Immediate Post Op with CF Date of Surgery October 27, 2020 Pre & Post Diagnosis Operation Date: 10/27/20 10:30 Pre-Op Diagnosis: Right scrotal abcess Post-Op Diagnosis: Right scrotal abcess I identified the patient and participated in the time-out.: Yes Procedure Operation Date: 10/27/20 10:30 Actual Procedures p Incision and drainage of right scrotal abcess, debribement of necrotic tissue(Right) - Rambo Malone MD Surgeon Rambo Malone MD [employer] nurse Estimated Blood Loss 200 Findings Consistent with Post-Op Diagnosis Specimens Specimen Description: culture#1 aerobic, anerobic culture right scrotal abcess Drains Martel Catheter
[2020-10-27] MEDS ORDERED: MEPERIDINE HCL 25 MG/ML CARP/VIAL ONE (19:26)
[2020-10-27] MEDS ORDERED: MEPERIDINE HCL 25 MG/ML CARP/VIAL IV STA (19:26)
--- NOTE | 2020-10-27 19:47 | Anesthesiology Progress Note ---
Date of Service October 27, 2020 Anesthesia Post Procedure Vital Signs Vital Signs: Temp Pulse Pulse Pulse Resp BP BP 10/27/20 19:40 90 20 147/90 H 10/27/20 19:30 93 H 23 134/84 10/27/20 19:20 93 H 20 126/93 10/27/20 19:10 37.0 C 82 23 112/60 10/27/20 17:29 37.6 C H 111 H 16 10/27/20 16:29 85 16 10/27/20 12:31 37.2 C 119 H 16 195/100 H BP Pulse Ox 10/27/20 19:40 92 10/27/20 19:30 92 10/27/20 19:20 95 10/27/20 19:10 92 10/27/20 17:29 180/120 H 96 10/27/20 16:29 152/103 H 100 10/27/20 12:31 98 Transfer of Care Handoff Completed per policy Notes Mental Status: alert / awake / arousable and participated in evaluation Patient Amnestic to Procedure: Yes Nausea / Vomiting: adequately controlled Pain: adequately controlled Airway Patency, RR, SpO2: stable & adequate BP & HR: stable & adequate Hydration State: stable & adequate Anesthetic Complications: no major complications apparent
--- NOTE | 2020-10-27 20:10 | Communication Note ---
Date of Service: October 27, [address] Malone to assist with admission orders. He notes pt. will require a hospitalist consult secondary to newly diagnosed DM as well as uncontrolled HTN. Admission orders completed. Discussed antibiotic needs with pharmacy. Case discussed with hospitalist--will place the pt. on SSI and lopressor 5 mg IV q4h with appropriate holds. Hospitalist will make further adjustments as needed.
[2020-10-27] MEDS ORDERED: PIPERACILL/TAZOBAC CONSULT ACTIVE PRN (20:16)
[2020-10-27] MEDS ORDERED: MoRPHine SULFATE 4 MG/ML 1 ML CARP\\VIAL IV SCH (20:16)
[2020-10-27] MEDS ORDERED: oxyCODONE HCL IR 5 MG TAB (IMMEDIATE RELEASE) PO PRN (20:16)
[2020-10-27] MEDS ORDERED: METOPROLOL TARTRATE 1 MG/ML VIAL IV SCH (20:16)
[2020-10-27] MEDS ORDERED: MoRPHine SULFATE 4 MG/ML 1 ML CARP\\VIAL IV PRN ×2 (20:36→20:52)
--- NOTE | 2020-10-27 20:46 | Hospitalist Consultation ---
Date of Consultation October 27, 2020 Assessment & Plan (1) Scrotal abscess: 35 yo M PMHx GERD admitted for scrotal abscess. Hospitalist service consulted for HTN and elevated BSG management. Scrotal abscess: With several days of worsening scrotal swelling, fevers at home. Leukocytosis to 17 on admission, with CT pelvis showing scrotal abscess without evidence of Fourniere's. Urology (Dr. Malone) performed incision and drainage of scrotal abscess today. Patient was started on vanc/Zosyn; continue this with eventual transition to oral therapy for discharge. CBC in AM. Elevated BSG: Noted to have elevated BSG to 202; this is in the setting of active infection. No history of DM2, though has not seen a PCP in many years. SSI ordered. Hgb A1c ordered for morning. Follow up PCP for glucose control. HTN: On arrival with HTN 190s/100s. This is in the setting of active infection. BP mildly elevated since OR, however not such that he would require prn Lopressor therapy. Lopressor 5mg q4h prn SBP >180, DBP >100. Follow up PCP for BP control. Hypokalemia: Admission with potassium 3.3. Replete with 40meq KCl PO, recheck BMP in AM. GERD: Continue PPI. Code Status: Full Code FEN: DM2 diet DVT ppx: ad yeni on demand, SCDs Dispo: Med/Surg with Telemetry (2) GERD (gastroesophageal reflux disease): (3) Elevated glucose level: Supervising Physician Co-Signing Physician Notes Attending addendum: I have supervised the medical residents activities, and agree with the H&P unless as otherwise noted. Assessment and Plan: Scrotal abscess/status post I&D- Follow culture and sensitivities Continue vancomycin IV and Zosyn IV empiric coverage Hyperglycemia- Placed on Accu-Cheks before meals and at bedtime with NovoLog coverage per scale Check hemoglobin A1c Uncontrolled blood pressure- Blood pressure noted to be 190/100s, but was noted to be improved without intervention shortly after surgery Lopressor 5 mg IV every 4 hours as needed systolic blood pressure greater than 180 or diastolic blood pressure greater than 100 in the immediate postop interval GERD- Continue pantoprazole Remaining orders and notations as noted History of Present Illness Reason for Consultation: scrotal swelling Requesting Physician: Rambo Malone MD Attending Physician: Rambo Malone MD History of Present Illness 35 yo M PMHx GERD presented to ER for several days of worsening right scrotal swelling and pain. Some complaints of fevers. No nausea or vomiting, chest pain, SOB, abdominal pain. No history of former abscesses. Has not seen a physician in many years; takes PPI for GERD. In the ER patient was noted to have grossly swollen and erythematous scrotum. Leukocytosis to 17; BSG 200s, HTN to 190s/100s. Pelvis CT performed which showed 12 cm scrotal abscess without collection or soft tissue gas within the perineal tissues. Urology consulted, and patient taken to OR for right scrotal abscess incision and drainage which he tolerated well. Hospitalist service consulted given HTN and elevated BSG on admission. Allergies Allergy/AdvReac Type Severity Reaction Status Date / Time No Known Allergies Allergy Unverified 10/27/20 14:23 Home Medications Medication Instructions Recorded Confirmed Type omeprazole magnesium [Prilosec OTC] 20 mg PO DAILY 10/27/20 10/27/20 History Patient History Medical History GERD (gastroesophageal reflux disease) No pertinent family history Surgical History No pertinent past surgical history Family History Grandfather (Maternal) Cancer Social History Smoking Status: Current every day smoker Cigarettes Per Day: 1 pack; Hx Alcohol Use: Yes Alcohol type: beer and hard liquor Hx Substance Use: No Preferred Language: Tristanian Communication Ability: Effective Beliefs That Will Affect Care: None Current Living Situation: Spouse Feels Safe at Home: Yes Safety Concerns: Feels Safe At This Time Assistive Devices: Glasses Review of Systems Review of Systems: All systems reviewed & are unremarkable except as noted in HPI & below Constitutional: no fever, no chills and no malaise Respiratory: no cough and no dyspnea Cardiovascular: no chest pain, no palpitations and no edema Gastrointestinal: no abdominal pain, no constipation and no diarrhea/loose stools Physical Exam Constitutional: WD/WN, vitals as above Eyes: PERRL, conjunctivae normal, anicteric sclerae ENMT: external ear and nose normal, oropharynx normal Neck: normal visual inspection Respiratory: normal respiratory effort, lungs clear to auscultation Cardiovascular: RRR, no murmur, no edema Gastrointestinal (Abdomen): normal bowel sounds, soft, nontender, no hepatosplenomegaly Musculoskeletal: no cyanosis or clubbing, extremities motor strength 5/5 Skin: no rashes, warm and dry Neurologic: AAOx3, normal speech. Bilateral UE, LE, and face without sensory or motor deficits. No tremor. Psychiatric: A+Ox3, euthymic affect Genitourinary: diffuse erythema and swelling noted to scrotum, right scrotum with packing in place Results & Data Results & Data ([facility]) Vital Signs (Past 12 Hours) Vital Signs Temp Pulse Pulse Pulse Pulse Resp BP 10/27/20 20:40 36.9 C 92 H 18 10/27/20 19:50 37.4 C 89 17 10/27/20 19:40 90 20 10/27/20 19:30 93 H 23 10/27/20 19:20 93 H 20 10/27/20 19:10 37.0 C 82 23 10/27/20 17:29 37.6 C H 111 H 16 10/27/20 16:29 85 16 10/27/20 12:31 37.2 C 119 H 16 195/100 H BP BP Pulse Ox 10/27/20 20:40 143/85 H 92 10/27/20 19:50 137/93 92 10/27/20 19:40 147/90 H 92 10/27/20 19:30 134/84 92 10/27/20 19:20 126/93 95 10/27/20 19:10 112/60 92 10/27/20 17:29 180/120 H 96 10/27/20 16:29 152/103 H 100 10/27/20 12:31 98 Resident Activity Tracking Resident Involvement: Resident Care Provided Care Provided: Adult Hospital Medicine (1) GERD (gastroesophageal reflux disease) Esophagitis presence: without esophagitis Qualified Code(s): K21.9 - Gastro- esophageal reflux disease without esophagitis
[2020-10-27] MEDS ORDERED: METOPROLOL TARTRATE 1 MG/ML VIAL IV PRN (20:59)
[2020-10-27] MEDS: LACTATED RINGER'S 1,000 ML IV SCH (21:25)
[2020-10-27] MEDS: ACETAMINOPHEN 1,000 MG/100 ML VIAL IV SCH (21:25)
[2020-10-27] MEDS ORDERED: POTASSIUM CHLORIDE CRTAB 20 MEQ TABCR PO STA (21:31)
[2020-10-27] MEDS: PIPERACILLIN/TAZOBACTAM 4.5 GM in DEXTROSE 5% 100 ML IV SCH (21:50)
[2020-10-27] MEDS: INSULIN ASPART 100 UNITS/ML 3 ML PEN SC SCH (21:51)
--- NOTE | 2020-10-27 21:57 | Pharmacy Report ---
Pharmacy Abx Initial Consult - Date of Service October 27, 2020 - Pharmacy Dosing Scope Date of Consult: 10/27/20 Consultation requested by: [facility] is consulted to continue Zosyn/Vancomycin IV dosing therapy, order appropriate labs and adjust drug dose/frequency. - Subjective The patient is a 35 year old M admitted on 10/27/20 19:[address] Malone took him to the OR for incision and drainage and [facility] assisted to continue Zosyn and Vancomycin IV that was begun in the ED. Will continue per pharmacy dosing at this time. - Objective Height: 6 ft Weight: 137.8 kg Vital Signs (Past 12hrs): Vital Signs Temp Pulse Pulse Pulse Pulse Resp BP 10/27/20 20:40 36.9 C 92 H 18 10/27/20 19:50 37.4 C 89 17 10/27/20 19:40 90 20 10/27/20 19:30 93 H 23 10/27/20 19:20 93 H 20 10/27/20 19:10 37.0 C 82 23 10/27/20 17:29 37.6 C H 111 H 16 10/27/20 16:29 85 16 10/27/20 12:31 37.2 C 119 H 16 195/100 H BP BP Pulse Ox 10/27/20 20:40 143/85 H 92 10/27/20 19:50 137/93 92 10/27/20 19:40 147/90 H 92 10/27/20 19:30 134/84 92 10/27/20 19:20 126/93 95 10/27/20 19:10 112/60 92 10/27/20 17:29 180/120 H 96 10/27/20 16:29 152/103 H 100 10/27/20 12:31 98 Lab Results (24hrs): Laboratory Tests (24 Hours) 10/27/20 10/27/20 13:00 13:00 WBC 17.24 H Neut # (Auto) 13.91 H Creatinine 0.80 Est Cr Clr Drug Dosing 183.6 Micro Results: 10/27/20 18:25 Gram Stain - Pending Scrotum Aerobic and Anaerobic Culture - Pending 10/27/20 15:33 Aerobic Blood Culture - Pending Blood Anaerobic Blood Culture - Pending 10/27/20 13:00 Aerobic Blood Culture - Pending Blood Anaerobic Blood Culture - Pending 10/27/20 15:10 Urine Culture - Pending Urine,Clean Catch - Risk Factors for Resistance * - Assessment & Plan Assessment 35 year old M with scrotal abscess Plan Vancomycin IV * Estimated PK Parameters: Vd 0.5 L/kg, Estevan 0.104 hr-1, t1/2 6.67 hr * Loading dose: 2750 mg (20 mg/kg) * Maintenance dose: 1500 mg IV (~11 mg/kg) every 12 hours * Goal trough level : 10-15 mcg/mL * Trough level ordered prior to 1400 dose on 10/29/20 * A less than traditional dose and/or extended dosing interval has/have been selected due to likelihood of drug accumulation in obese patient. * USED new AUC calculator with assistance of Zheng MejiaD Piperacillin/tazobactam * 4.5 g bolus administered over 30 minutes, then 4.5 g IV extended infusion every 8 hours for CrCl greater than 20 mL * Aggressive dosing selected due BMI >35 Pharmacy will continue to follow and will adjust dose/frequency as necessary. Thank you.
[2020-10-28] MEDS: VANCOMYCIN HCL 1,500 MG in SODIUM CHLORIDE 0.9% 500 ML IV SCH ×2 (01:26→14:39)
[2020-10-28] MEDS: ACETAMINOPHEN 1,000 MG/100 ML VIAL IV SCH ×3 (05:24→22:29)
[2020-10-28] MEDS: PIPERACILLIN/TAZOBACTAM 4.5 GM in DEXTROSE 5% 100 ML IV SCH ×3 (06:16→20:39)
--- NOTE | 2020-10-28 06:38 | Operative Report (OR) ---
DATE OF OPERATION: 10/27/2020 SURGEON: Rambo Malone MD PREOPERATIVE DIAGNOSIS: Right scrotal abscess. POSTOPERATIVE DIAGNOSIS: Right scrotal abscess. ANESTHESIA: General. BLOOD LOSS: Estimated 200 mL. HISTORY OF PRESENTATION: The patient is a 35-year-old male with a 1-week history of an increasing scrotal abscess. It started out the size of a pea but over the past 3 days has gotten increasingly large. He had previously had one on the left side that spontaneously drained and got better. This one was much more enlarged and he went to an outside facility to have this examined and then was referred to the Emergency Room. A CAT scan was performed, which showed a large 12 cm abscess with no obvious extension into the inguinal area or into the perineum. The patient also had an elevated blood pressure at one point. Prior to the OR it was 180/120 and apparently it was higher right before he went into the OR. His blood sugar was over 200 and again he had not been a diabetic and had not eaten since 9:00 in the morning. The patient was given Zosyn and vancomycin in the Emergency Room and taken to the operating room after a consult was done. A request for the hospitalist to admit the patient was done, but they requested that we admit the patient because it was short staffed. DESCRIPTION OF THE PROCEDURE: The patient was taken to the operating room where general anesthesia was administered. The patient had Venodyne stockings on. He had been given preoperative antibiotics. He was prepped and draped in the usual sterile fashion. Pictures were taken of the scrotal abscess prior to the procedure. Particular attention was paid to the perineum. There was no extension down into the perineum and it did not appear to extend beyond the cord, although the cord was slightly thickened just up to the level of the external ring. After the patient was prepped and draped, there was one area where he had a small bandage on in his suprapubic area that was a skin abrasion. This area was shaved as well as the scrotum and an incision was then made horizontally in the mid scrotum initially just 1-2 cm until the abscess began to drain. It drained over 300 mL of purulent fluid. After this was performed, this incision was opened up large enough for me to place the suction in there to make sure all the fluid was out and my finger was used to make sure there were no loculated areas. There was quite a bit of reactive bleeding at this point. At one point, I packed the wound with the lap proximally to slow the bleeding down and after this was taken out the bleeding was substantially less. I looked for any bleeders along the skin incision. I did try to identify the testis, but it with so matted down and surrounded by reactive inflammatory tissue that did not appear to be necrotic. I did resect some of it until it bled and it appeared to me that there was no obvious necrosis of the testis, but again it was difficult to get down to the true testis as it was surrounded by reactive tissue. The skin did not appear to be necrotic and in fact bled copiously and again there was reactive bleeding. All bleeding points that I could see were fulgurated. At the end, the wound was irrigated with a liter of saline with gentamicin and then the wound was packed with 1-inch gauze dressing with iodine impregnation. At this point, scrotal support was placed. The patient was wiped clean as best we could. Martel catheter was placed and he had over 700 mL in his bladder. The patient was then transferred to the recovery room in stable condition. I attest to the content of the Intraoperative Record and any orders documented therein. Any exception s are noted below.
[2020-10-28 07:02] LABS: Basophils # (auto) 0.02 K/uL (0-0.2); Basophils % (auto) 0.1 %; Hematocrit (blood only) 50.9 % (42-52); Hemoglobin 17.6 g/dL (14.0-18.0); Immature Granulocytes # (auto) 0.04 K/uL (0.00-0.02); Immature Granulocytes % (auto) 0.3 %; Lymphocytes # (auto) 1.45 K/uL (1.2-3.4); Lymphocytes % (auto) 9.1 %; Mean Corpuscular Hemoglobin 32.5 pg (25-34); Mean Corpuscular Volume 93.9 fL (80-100); Mean Platelet Volume 10.8 fL (7.4-10.4); Monocytes # (auto) 0.55 K/uL (0.11-0.59); Monocytes % (auto) 3.5 %; Neutrophils # (auto) 13.85 K/uL (1.4-6.5); Platelet Count 259 K/uL (130-400); RDW Coefficient of Variation 12.2 % (11.5-14.5); RDW Standard Deviation 41.4 fL (36.4-46.3); Red Blood Count 5.42 M/uL (4.7-6.1); White Blood Count 15.91 K/uL (4.8-10.8)
[2020-10-28 07:41] LABS: BUN Creatinine Ratio 20.2 (10-20); Calcium 8.5 mg/dl (8.5-10.1); Creatinine Clr Calc Pharmacy 244.8 ml/min; Est GFR (African American) 149.9; Est GFR (Non-African American) 129.4
[2020-10-28 08:02] LABS: Mean Corpuscular Hgb Conc 34.6 g/dL (32-36)
[2020-10-28] MEDS: INSULIN ASPART 100 UNITS/ML 3 ML PEN SC SCH ×4 (08:24→20:33)
[2020-10-28] MEDS: PANTOprazole 40 MG TAB PO SCH (08:24)
[2020-10-28] MEDS: oxyCODONE HCL IR 5 MG TAB (IMMEDIATE RELEASE) PO PRN ×2 (09:52→19:40)
--- NOTE | 2020-10-28 10:00 | Urology Progress Note ---
Date of Service October 28, 2020 Assessment & Plan (1) Scrotal abscess: Large scrotal abscess postoperative day #1 status post emergent OR drainage Scrotal packing was removed at the bedside and replaced utilizing an iodoform gauze. Full container of gauze was required to fill the cavity. The base of the cavity was healthy in appearance without any foul odor or purulence We will consult the wound care service to assist with continued care as he will take an extended period of time likely to completely heal this wound He will also be transferred to the hospitalist service We will continue to follow Admission and Anticipated Discharge Date Admission Date: October 27, 2020 Subjective 35-year-old male with a large scrotal abscess drained yesterday in the operating room emergently He has tolerated things well overnight He is hemodynamically stableblood pressure has improved, blood sugars remain elevated but gradually improving Afebrile Pain controlled Physical Exam Physical Exam: Erythematous scrotal skin, indurated Packing in place, some drainage, mostly bloody, limited purulence, no foul odor No crepitus Constitutional: well developed and well nourished Respiratory: no respiratory distress Cardiovascular: Extremities: no pedal edema Gastrointestinal (Abdomen): Inspection/Auscultation: abdomen normal to inspection Results & Data ([facility]) Vital Signs (Past 12 Hours) Vital Signs Temp Pulse Pulse Resp BP Pulse Ox 10/28/20 07:25 75 10/28/20 07:03 36.7 C 73 20 148/87 H 97 10/28/20 03:39 36.4 C L 69 20 119/78 97 10/28/20 01:59 73 16 96 10/28/20 01:10 81 10/27/20 23:15 36.9 C 83 20 134/85 95 PG Care Time/CCT Total # of Minutes Spent Total Time Spent with Patient: Total time spent is greater than 50% in coordination of care (as documented) at patient's floor/unit and/or counseling patient: Coding Level of Care Code 99344 Subseq Hosp Care Lvl 3 Diagnoses Scrotal abscess N49.2
[2020-10-28 10:04] LABS: Estimated Average Glucose 174 mg/dl; Hemoglobin A1C 7.7 % (4.5-5.6)
[2020-10-28] MEDS ORDERED: PHARMACY GLYCEMIC MGMT CONSULT PRN (11:09)
[2020-10-28] MEDS ORDERED: INSULIN GLARGINE SOLOSTAR 100 UNITS/ML 3 ML PEN SC ONE (11:45)
--- NOTE | 2020-10-28 11:49 | Pharmacy Report ---
Pharmacy Glycemic Short Note 2 - Date of Service October 28, 2020 - Glycemic Short BSG Results (Last 24 hours): 10/27/20 10/27/20 10/27/20 13:00 19:16 21:27 Glucose 202 H POC Glucose 139 H 190 H 10/28/20 10/28/20 06:33 07:27 Glucose 186 H POC Glucose 201 H OUTPATIENT ANTIDIABETIC REGIMEN: * N/a * A1c 7.7 % 10/28 ASSESSMENT: * Mr. COY is admitted w/ a scrotal abscess POD #1 I&D, currently on vancomycin/zosyn * BSGs mildly elevated with an A1c 7.7% indicates new diagnosis of diabetes. * Will initiate basal/bolus while in hospital, begin with weight based stress of 1 full lantus dose now, additional scale for PM * Tighten novolog parameters between weight based stress of 1 and 2. PLAN FOR INPATIENT GLYCEMIC CONTROL: * Hold outpatient oral diabetes medications * Basal insulin * Lantus 25 units x 1 now, scale up to an additional 25 units tonight * Bolus insulin * NovoLog per scale ACHS or Q6hrs while NPO * Goal Range: Low 110 mg/dL - High 140 mg/dL * Correction Factor: 20 mg/dL/unit * Nutritional / Prandial insulin per carb ratio of 1 unit per 10 grams CHO consumed PLAN FOR DISCHARGE: * New diagnosis w/ patient A1c = 6.5-8% and goal A1c <7% Metformin should be started at the time type 2 diabetes is diagnosed unless there are contraindications. Metformin is effective and safe, is inexpensive, and may reduce risk of cardiovascular events and . o B12 supplementation may be necessary with residential metformin use o Recommend starting: Metformin XR 500mg PO daily with evening meal. Typically the XR formulation of metformin is better tolerated than the immediate release formulation. Continue to titrate metformin dosing upwards as recommended. Dosage increases should be made in increments of 500 mg weekly, up to 2,000 mg/day PO, given in divided doses. Doses above 2000 mg/day may be better tolerated if divided and given 3 times per day with meals. Max: 2,550 mg/day PO, in divided doses Support Patient Self-Management o Healthy Lifestyle (diet, exercise, and smoking cessation) o Disease self-management (SMBG) o Prevention of complications (BP, Lipid goals, Immunizations) o Consider outpatient Diabetes Self-Management Education & Support
[2020-10-28] MEDS: LACTATED RINGER'S 1,000 ML IV SCH (12:42)
[2020-10-28] MEDS ORDERED: GLUCAGON FOR INJ 1 MG VIAL IM PRN (15:15)
[2020-10-28] MEDS ORDERED: CARBOHYDRATES FOR HYPOGLYCEMIA PO PRN (15:15)
[2020-10-28] MEDS ORDERED: GLUCOSE 40% GEL 15 GM TUBE PO PRN (15:15)
[2020-10-28] MEDS ORDERED: DEXTROSE 50% 50 ML SYRINGE IV PRN (15:15)
[2020-10-28] MEDS ORDERED: GLUCOSE 10 TABS/TUBE PO PRN (15:15)
[2020-10-28] MEDS ORDERED: INSULIN GLARGINE SOLOSTAR 100 UNITS/ML 3 ML PEN SC SCH (21:00)
--- NOTE | 2020-10-28 23:10 | Hospitalist Progress Note ---
Date of Service October 28, 2020 Assessment & Plan (1) Scrotal abscess: S/P I and D by urology. will continue abx. vitals have been stable. (2) Scrotal swelling: as above. (3) Elevated glucose level: Diabetes Mellitus Type 2 consulted glycemic control. will monitor will be on oral meds at discharge (4) Sepsis: POA Elevated WBC and HR Now improved and resolved after procedure (5) Hypertension: BP has been elevated, will continue to monitor, hold off meds for now. Admission and Anticipated Discharge Date Admission Date: October 27, 2020 Subjective Patient reports feeling comfortable. He has no new complaints. Review of Systems Review of Systems: All systems reviewed & are unremarkable except as noted in HPI & below Physical Exam Physical Exam: Constitutional: WD/WN, vitals as above Eyes: PERRL, conjunctivae normal, anicteric sclerae ENMT: external ear and nose normal, oropharynx normal Neck: normal visual inspection Respiratory: normal respiratory effort, lungs clear to auscultation Cardiovascular: RRR, no murmur, no edema Gastrointestinal (Abdomen): normal bowel sounds, soft, nontender, no hepatosplenomegaly Musculoskeletal: no cyanosis or clubbing, extremities motor strength 5/5 Skin: no rashes, warm and dry Neurologic: AAOx3, normal speech. Bilateral UE, LE, and face without sensory or motor deficits. No tremor. Psychiatric: A+Ox3, euthymic affect Results & Data Results & Data ([facility]) Vital Signs (Past 12 Hours) Vital Signs Temp Pulse Pulse Resp BP Pulse Ox 10/28/20 22:42 36.5 C 66 16 139/87 97 10/28/20 22:29 80 16 96 10/28/20 19:39 36.8 C 77 19 158/99 H 97 10/28/20 16:49 72 10/28/20 15:11 36.6 C 79 18 146/90 H 98 10/28/20 11:45 36.5 C 79 18 149/88 H 96 PG Care Time/CCT Total # of Minutes Spent Total Time Spent with Patient: Total time spent is greater than 50% in coordination of care (as documented) at patient's floor/unit and/or counseling patient: Coding Level of Care Code 64347 Subseq Hosp Care Lvl 3 Diagnoses Scrotal abscess N49.2 Scrotal swelling N50.89 Elevated glucose level R73.09 Sepsis A41.9 Hypertension I10 Time Spent (min) 35
[2020-10-29] MEDS: INSULIN ASPART 100 UNITS/ML 3 ML PEN SC SCH ×5 (00:50→12:19)
[2020-10-29] MEDS: VANCOMYCIN HCL 1,500 MG in SODIUM CHLORIDE 0.9% 500 ML IV SCH (02:20)
[2020-10-29] MEDS: LACTATED RINGER'S 1,000 ML IV SCH (02:20)
[2020-10-29] MEDS: ACETAMINOPHEN 1,000 MG/100 ML VIAL IV SCH (05:19)
[2020-10-29] MEDS: PIPERACILLIN/TAZOBACTAM 4.5 GM in DEXTROSE 5% 100 ML IV SCH ×2 (05:35→14:09)
--- NOTE | 2020-10-29 06:31 | Billing Data ---
Date of Service October 29, 2020 Coding Level of Care Code 89864 Inpt Consult Level 3
[2020-10-29 08:17] LABS: Basophils # (auto) 0.03 K/uL (0-0.2); Basophils % (auto) 0.3 %; Eosinophils # (auto) 0.12 K/uL (0-0.5); Eosinophils % (auto) 1.1 %; Hematocrit (blood only) 47.7 % (42-52); Hemoglobin 16.4 g/dL (14.0-18.0); Immature Granulocytes # (auto) 0.03 K/uL (0.00-0.02); Immature Granulocytes % (auto) 0.3 %; Lymphocytes # (auto) 1.81 K/uL (1.2-3.4); Mean Corpuscular Hemoglobin 32.8 pg (25-34); Mean Corpuscular Hgb Conc 34.4 g/dL (32-36); Mean Corpuscular Volume 95.4 fL (80-100); Mean Platelet Volume 10.4 fL (7.4-10.4); Monocytes # (auto) 0.73 K/uL (0.11-0.59); Monocytes % (auto) 6.5 %; Neutrophils # (auto) 8.57 K/uL (1.4-6.5); Neutrophils % (auto) 75.8 %; Platelet Count 270 K/uL (130-400); RDW Coefficient of Variation 12.2 % (11.5-14.5); RDW Standard Deviation 42.6 fL (36.4-46.3); White Blood Count 11.29 K/uL (4.8-10.8)
--- NOTE | 2020-10-29 08:20 | Urology Progress Note ---
Date of Service October 29, 2020 Assessment & Plan (1) Scrotal abscess: 35 year-old male patient admitted to hospital with scrotal abscess. -POD#2 I&D of right scrotal abscess and debridement with Dr. Malone. -Patient afebrile. -Labs reviewed - white count improving, creatinine stable. -Preliminary blood cultures no growth after 24 hours. -Preliminary urine culture with pinpoint growth, re-incubating. -Plan for wound care consult to assist with dressing changes/continued care. -It will likely take an extended period of time to completely heal his wound. -Consider home health referral to assist with in home dressing changes if patient unable to do himself. -Recommend discharge with antibiotic therapy for at least 7 days, await final cultures. -Will continue to follow while inpatient. Admission and Anticipated Discharge Date Admission Date: October 27, 2020 Subjective Patient examined at bedside. Reports he did not sleep well overnight due to being in the hospital. Feels anxious today, wants to go home. Does have mild discomfort to scrotum, tolerable. Martel catheter removed yesterday, has been voiding spontaneously without difficulty. Denies dysuria or hematuria. Feels like he empties his bladder well. Denies fevers or chills. Denies nausea or vomiting. States wound care did not see him yesterday, packing has not yet been changed today. Chart review: Afebrile Wbc 11.29 (previously 15.91) Hgb 16.4 Creatinine 0.69 Preliminary blood cultures no growth after 24 hours. Preliminary urine culture with pinpoint growth, re-incubating. Currently on IV Zosyn and IV Vancomycin. Denies additional urologic concerns today. Review of Systems Constitutional: as per Subjective / HPI; no fever and no chills Gastrointestinal: as per Subjective / HPI; no nausea and no vomiting Genitourinary: + as per Subjective / HPI Integumentary: as per Subjective / HPI Physical Exam Constitutional: well developed and well nourished; no acute distress and not ill appearing Appears mildly anxious Respiratory: normal respiratory effort and able to speak in complete sentences; no respiratory distress and no audible wheezes Gastrointestinal (Abdomen): Inspection/Auscultation: abdomen normal to inspection; abdomen not distended Percussion/Palpation: abdomen soft; abdomen nontender and no guarding Psychiatric: Orientation: alert, oriented x 3 and cooperative Affect: euthymic affect Genitourinary: Scrotal support in place. Scrotum swollen, packing/dressing in place. Mild erythema. No purulent drainage or odor noted. Results & Data ([facility]) Vital Signs (Past 12 Hours) Vital Signs Temp Pulse Pulse Resp BP BP Pulse Ox 10/29/20 07:56 172/98 H 10/29/20 07:15 36.5 C 77 18 175/123 H 99 10/29/20 04:31 36.8 C 75 18 142/93 H 97 10/29/20 04:05 83 17 97 10/28/20 23:51 82 10/28/20 22:42 36.5 C 66 16 139/87 97 10/28/20 22:29 80 16 96 PG Care Time/CCT Total # of Minutes Spent Total Time Spent with Patient: Total time spent is greater than 50% in coordination of care (as documented) at patient's floor/unit and/or counseling patient: Coding Level of Care Code 85818 Subseq Hosp Care Lvl 2 Diagnoses Scrotal abscess N49.2
[2020-10-29 08:40] LABS: BUN Creatinine Ratio 21.6 (10-20); Calcium 8.8 mg/dl (8.5-10.1); Creatinine Clr Calc Pharmacy 212.9 ml/min; Est GFR (African American) 141.6; Est GFR (Non-African American) 122.1; Potassium 3.8 mmol/L (3.5-5.1)
[2020-10-29] MEDS ORDERED: INSULIN GLARGINE SOLOSTAR 100 UNITS/ML 3 ML PEN SC SCH (09:00)
[2020-10-29] MEDS: PANTOprazole 40 MG TAB PO SCH (09:05)
--- NOTE | 2020-10-29 10:04 | Pharmacy Report ---
Pharmacy Glycemic Short Note 2 - Date of Service October 29, 2020 - Glycemic Short BSG Results (Last 24 hours): 10/28/20 10/28/20 10/28/20 12:00 16:29 20:05 Glucose POC Glucose 139 H 122 H 132 H 10/29/20 10/29/20 10/29/20 00:02 04:10 07:40 Glucose POC Glucose 125 H 125 H 123 H 10/29/20 08:08 Glucose 144 H POC Glucose OUTPATIENT ANTIDIABETIC REGIMEN: * N/a * A1c 7.7 % 10/28 ASSESSMENT: 10/29: * Pt has received 36 units of insulin over the past 24hrs * 25 units of basal with Lantus * 11 units of bolus with NovoLog * BSGs [phone] mg/dl * AM fasting BSG is in goal range with current basal insulin orders * Post-prandial BSGs are in goal range with current orders. * Regimen is weighted towards basal insulin but CHO intake is somewhat low. * Pt needs DM education consult for new diagnosis 10/28: * Mr. COY is admitted w/ a scrotal abscess POD #1 I&D, currently on vancomycin/zosyn * BSGs mildly elevated with an A1c 7.7% indicates new diagnosis of diabetes. * Will initiate basal/bolus while in hospital, begin with weight based stress of 1 full lantus dose now, additional scale for PM * Tighten novolog parameters between weight based stress of 1 and 2. PLAN FOR INPATIENT GLYCEMIC CONTROL: no changes needed at this time. * Hold outpatient oral diabetes medications * Basal insulin * Lantus 25 units SQ daily in AM * Bolus insulin * NovoLog per scale ACHS or Q6hrs while NPO * Goal Range: Low 110 mg/dL - High 140 mg/dL * Correction Factor: 20 mg/dL/unit * Nutritional / Prandial insulin per carb ratio of 1 unit per 10 grams CHO consumed * Consult Tester Wafer Substrate PLAN FOR DISCHARGE: * New diagnosis w/ patient A1c = 6.5-8% and goal A1c <7% * Metformin should be started at the time type 2 diabetes is diagnosed unless there are contraindications. Metformin is effective and safe, is inexpensive, and may reduce risk of cardiovascular events and . 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 Typically the XR formulation of metformin is better tolerated thanthe immediate release formulation. Continue to titrate metformin dosing upwards as recommended. Dosage increases should be made in increments of 500 mg weekly, up to 2,000 mg/day PO, given in divided doses. Doses above 2000 mg/day may be better tolerated if divided and given 3 times per day with meals. Max: 2,550 mg/day PO, in divided doses * Support Patient Self-Management * Healthy Lifestyle (diet, exercise, and smoking cessation) * Disease self-management (SMBG) * Prevention of complications (BP, Lipid goals, Immunizations) * Consider outpatient Diabetes Self-Management Education & Support
[2020-10-29] MEDS: oxyCODONE HCL IR 5 MG TAB (IMMEDIATE RELEASE) PO PRN (11:20)
[2020-10-29] MEDS ORDERED: VANCOMYCIN TROUGH ONE (13:30)
--- NOTE | 2020-10-29 14:29 | Pharmacy Report ---
Pharmacy Abx Dose Progress Nt - Date of Service October 29, 2020 - Pharmacy Dosing Scope The patient is currently receiving the following antimicrobial agents per Pharmacy consult: VANCOMYCIN 1500mg IV every 12 hours - Objective Vital Signs (Past 12hrs): Vital Signs Temp Pulse Pulse Resp BP BP Pulse Ox 10/29/20 12:28 156/80 H 10/29/20 11:21 36.9 C 83 18 98 10/29/20 07:56 172/98 H 10/29/20 07:15 36.5 C 77 18 175/123 H 99 10/29/20 04:31 36.8 C 75 18 142/93 H 97 10/29/20 04:05 83 17 97 Lab Results (24hrs): Laboratory Tests (24 Hours) 10/29/20 10/29/20 10/29/20 13:26 08:08 08:08 WBC Neut # (Auto) Creatinine 0.69 Est Cr Clr Drug Dosing 212.9 Procalcitonin < 0.05 Vancomycin Trough 6.6 10/29/20 08:08 WBC 11.29 H Neut # (Auto) 8.57 H Creatinine Est Cr Clr Drug Dosing Procalcitonin Vancomycin Trough Micro Results: 10/27/20 18:25 Gram Stain - Final Scrotum 10/27/20 15:10 Urine Culture - Final Urine,Clean Catch More than three types of organisms present, all high counts mixed probable skin malik - No further identifications or sensitivities to follow. - Assessment & Plan Assessment 35 year old M receiving VANCOMYCIN for treatment of SCROTAL ABSCESS Day # 3 of antimicrobial therapy Pt with morbid obesity- risk of rapid vancomycin accumulation is likely once volume of distribution reaches steady state Cultures growing group b strep and GPC - will wait for speciation of GPC prior to de-escalation. Plan Vancomycin IV * Trough level of 6.6 mcg/mL is subtherapeutic * Change to 1,250 mg IV every 8 hours * Goal trough level for SST : 10 to 20 mcg/mL * Trough or random level ordered for: 10/31/20 @ 0530 Pharmacy will continue to follow and will adjust dose/frequency as necessary. Thank you.
[2020-10-29] MEDS ORDERED: VANCOMYCIN HCL 1,250 MG in SODIUM CHLORIDE 0.9% 250 ML IV SCH (22:00)
[2020-10-31] MEDS ORDERED: VANCOMYCIN TROUGH ONE (05:30)
--- NOTE | 2020-11-04 10:11 | Discharge Summary ---
Date of Service October 29, 2020 Principal Diagnosis scrotal abscess Discharge Exam Constitutional: WD/WN, vitals as above Eyes: PERRL, conjunctivae normal, anicteric sclerae ENMT: external ear and nose normal, oropharynx normal Neck: normal visual inspection Respiratory: normal respiratory effort, lungs clear to auscultation Cardiovascular: RRR, no murmur, no edema Gastrointestinal (Abdomen): normal bowel sounds, soft, nontender, no hepatosplenomegaly Musculoskeletal: no cyanosis or clubbing, extremities motor strength 5/5 Skin: no rashes, warm and dry Neurologic: AAOx3, normal speech. Bilateral UE, LE, and face without sensory or motor deficits. No tremor. Psychiatric: A+Ox3, euthymic affect Discharge Data Allergies Allergy/AdvReac Type Severity Reaction Status Date / Time No Known Allergies Allergy Unverified 10/27/20 14:23 Consultations 10/27/20 15:56 ED Decision to Admit Stat 10/27/20 16:23 Consult Urology Stat 10/27/20 19:18 Consult Hospitalist Routine 10/28/20 18:40 Consult Infectious Diseases Routine Procedures Performed Operation Date: 10/27/20 10:30 Actual Procedures p Incision and drainage of right scrotal abcess, debribement of necrotic tissue(Right) - Rambo Malone MD Ordered Studies 10/27/20 14:42 CT pelvis w/IV con only Stat Diabetes Follow up Diabetes Follow-up Needed for Newly Diagnosed Diabetes Hospital Course (1) Scrotal abscess: S/P I and D by urology. will continue abx. vitals have been stable. Apreciate input from Urology. -Plan for wound care consult to assist with dressing changes/continued care. -It will likely take an extended period of time to completely heal his wound. -Consider home health referral to assist with in home dressing changes if patient unable to do himself. -Recommend discharge with antibiotic therapy for at least 7 days. Will discharge on Bactrim double strength for 7 more days. Cultured showed group B strep (only resistant to erythomycin and azithromycin) and peptostreptococcus (2) Scrotal swelling: as above. (3) Elevated glucose level: Diabetes Mellitus Type 2 consulted glycemic control. will monitor will be on oral meds at discharge (4) Sepsis: POA Elevated WBC and HR Now improved and resolved after procedure (5) Hypertension: BP has been elevated, will continue to monitor, hold off meds for now. will defer to PCP Total Time Total Time Spent Total Time Spent (In Minutes): 32 Total Time Includes: Examination of the Patient, Discharge Planning and Medication Reconciliation Discharge Plan Discharge Items Patient Disposition: Home - Home Health Services Reason For Visit: SCROTAL ABSCESS Discharge Diagnosis: Scrotal Abscess Activity: Resume your previous activity Non-emergency contact: Primary Care Provider Call non-emergency contact if: you have any medication questions Follow-up/Referrals: Shon Siddiqi CRNP [Nurse Practitioner] - 11/09/20 11:00 am (Your appointment is with the nurse practitioner, Alexis Siddiqi. If you have any questions or need to change this appointment, please call [phone].) Diet: Carb Consistent or DM2 Addtl Attending Provider Instructions: You were found to have a scrotal infection. You will be discharged with wound care and oral antibiotics for 7 days. You were also found to have diabetes. Will recommend metformin once a day. Please keep a diary of your blood sugars Will need to followup with wound center care on 11/05 Recommend followup with Urology in 1-2 weeks Pending Studies at Discharge: No Stand-Alone Forms: My [facility] [employer] [place], Smoking Cessation Medications and DC Order Prescriptions: New metformin 500 mg tablet extended release 24 hr 500 mg PO PM Qty: 30 RF: 0 (DME) OneTouch Verio test strips Strip See Rx Instructions .ROUTE .MEDSUPPLY Qty: 100 RF: 0 (DME) lancets [OneTouch Delica Lancets] 30 gauge misc See Rx Instructions .ROUTE .MEDSUPPLY Qty: 100 RF: 0 sulfamethoxazole-trimethoprim [Bactrim DS] 800-160 mg tablet 1 tab PO BID Qty: 14 RF: 0 Continued omeprazole magnesium [Prilosec OTC] 20 mg Tablet,Delayed Release (Dr/Ec) 20 mg PO DAILY RF: 0 Discharge Orders: Discharge Order (Routine); Ordered 10/29/20 Ordered By: Tobias Keys/Other Patient Handouts: Managing Type 2 Diabetes, How to Check Your Blood Sugar, Healthy Meals for Diabetes, Diabetes: The Benefits of Exercise, Diabetes: Living Your Life, Diabetes: Meal Planning, Taking Medicine for Diabetes, Facts About Diabetes Admission Data Admit Date/Time: 10/27/20 19:21 Attending Provider: Tobias Araiza Admit Provider: Rambo Malone Primary Care Provider: PCP,NO Other Providers: Rambo Malone ; Beto Santos ; Allegra Hills ; Jhon Harper I. ; Earl Matthews II ; Milagros Moore ; Salas Felton ; [facility] ; Michael Naqvi Other Interventions: Discharge Summary Assessment (RN) Last Done: 10/29/20 15:26 Coding Level of Care Code D/C Day Management >30 mins Diagnoses Scrotal abscess N49.2 Scrotal swelling N50.89 Elevated glucose level R73.09 Sepsis A41.9 Hypertension I10
== END 2020-10-29 17:05 | disposition home health service (06) | DRG 855 ==
LOC: ED 12:28 → 2N 17:24 → OR 17:24 → SUATTDRO 19:21 → 2N 19:21